=== PATIENT | female | born 1970 | race Caucasian/White ===

== ENCOUNTER 2022-04-19 17:56 | Emergency (ER) | payer OTHER, SELFPAY ==
--- NOTE | ~2022-04-19 | XR_ITS ---
EXAM: XR ankle RT min 3V DATE: 04/19/2022 18:17 HISTORY: INVERSION INJURY,LAT MALLEOLUS PAIN . COMPARISON: 01/24/2013. FINDINGS: Normal mineralization. No fracture or dislocation. No lytic or blastic lesion. Mild scatte red degenerative change. Plantar enthesopathy No erosion or periosteal change. Mild lateral soft tiss ue swelling. IMPRESSION: No acute osseous finding in the right ankle. Reviewed, dictated and finalized at location K.
--- NOTE | 2022-04-19 17:59 | ED.LOWEXIN ---
HPI - Extremity Injury (Lower) General Chief Complaint: Extremity Injury, Lower Stated Complaint: right ankle injury Time Seen by Provider: 04/19/22 17:59 Source: patient Mode of arrival: ambulatory Limitations: no limitations History of Present Illness HPI Narrative: Ms. Walker is a 52-year-old female patient presenting to the clinic today with complaints of right ankle pain. She reports that she everted her ankle yesterday. She reports that it has gradually gotten more swollen and painful. She is having pain with walking as well as pain with dorsiflexion. She would like an x-ray done today to see if it is broken. Related Data Home Medications Medication Instructions Recorded Confirmed ergocalciferol (vitamin D2) 1,250 1,250 mcg PO WEEKLY 04/19/22 04/19/22 mcg (50,000 unit) capsule (Vitamin D2) omeprazole 40 mg capsule,delayed 40 mg PO BID 04/19/22 04/19/22 release Allergies Allergy/AdvReac Type Severity Reaction Status Date / Time codeine Allergy Headache Verified 04/19/22 18:11 Review of Systems Review of Systems: Pertinent positives per HPI. Patient denies any fever, chills, rash, headache, visual changes, dizziness, cough, runny nose, sore throat, shortness of breath, chest pain, palpitations, nausea, vomiting, diarrhea, constipation, abdominal pain, or any urinary issues. PMFSH Comments At the time of my signature, I reviewed and agree with the nursing past medical, surgical, social, and family history. There is no relevant family history pertinent to the patient complaint. Exam Narrative: General: Well-developed, well nourished, in no apparent distress Head: Normocephalic, atraumatic. Cardio: Regular rate and rhythm, s1 and s2 normal, no murmur appreciated. Resp: Clear to auscultation bilaterally, no rhonchi, rales, wheezing or rubs. Musculoskeletal: No deformity, tender to palpation over the lateral right ankle, lateral malleolus, limited range of motion due to pain, pain with dorsal flexion against resistance, muscle strength strong and equal, peripheral pulse strong, no edema, no cyanosis, normal gait and station Course Course Emergency Course: Portions of this record may have been created with voice recognition software. Level of Care: Express Care Visit Vital Signs Vital signs: Vital Signs Temperature 37.3 C 04/19/22 18:02 Pulse Rate 84 04/19/22 18:02 Respiratory Rate 16 04/19/22 18:02 Blood Pressure 118/72 04/19/22 18:02 Pulse Oximetry 98 04/19/22 18:02 Oxygen Delivery Room Air 04/19/22 18:02 Temperature 37.3 C 04/19/22 18:02 Pulse Rate 84 04/19/22 18:02 Respiratory Rate 16 04/19/22 18:02 Blood Pressure 118/72 04/19/22 18:02 Pulse Oximetry 98 04/19/22 18:02 Oxygen Delivery Room Air 04/19/22 18:02 Vital signs reviewed MDM - Extremity Injury (Lower) MDM Narrative Medical decision making narrative: At the time of visit patient is resting comfortably on the exam table. X-ray is negative for any signs of acute fracture or malalignment of the right ankle. I suspect the patient has an ankle sprain. Supportive measures were discussed with the patient and she voiced understanding of discharge instructions and agrees to the treatment plan. Differential Diagnosis Differential diagnosis: Likely ankle sprain and strain and ankle fracture Imaging Data Radiologist's impression: [address] [employer] [place] [id number] XRay Report Signed Patient: Nery Walker : 1970 MR#: [id number] Age/Sex: 52 / F Acct:[id number] Loc: [facility]? ? ADM Date: 04/19/22Attending Dr: Ordering Physician: Fabio Hollis APRN Date of Service: 04/19/22 Procedure(s): XR ankle RT min 3V Accession Number(s): [id number] cc: Jett, Jolanta Antoine DO; Fabio Hollis APRN~ EXAM:? XR ankle RT min 3V DATE: 04/19/2022 18:17 HISTORY: INVERSION INJURY,LAT MALLEOLUS P
[2022-04-19 18:02] VITALS: BP 118/72; PULSE 84; RESP 16; TEMP 37.3; O2SAT 98
--- NOTE | 2022-04-19 18:17 | PC.NURSE ---
PT DECLINED WHEELCHAIR TO RADIOLOGY AND ICE FOR COMFORT
== END 2022-04-19 18:31 | disposition home or self-care (01) ==
PROVIDERS: Emergency Provider Nurse Practitioner Family; PCP Family Medicine
DX: S93.411A Sprain of calcaneofibular ligament of right ankle, initial encounter (principal)
CPT/HCPCS: 73610; 99203; G0463